=== PATIENT | female | born 1975 | race Caucasian/White ===

== ENCOUNTER 2023-12-31 21:50 | Emergency (ER) | payer OTHER ==
[~2023-12-31] VITALS: Ht 157.5 cm; Wt 54.4 kg
[2023-12-31 22:29] VITALS: TEMP 98.4
[2024-01-01 00:34] VITALS: BP 125/78; O2SAT 100
== END 2024-01-01 00:34 | disposition home or self-care (01) ==
LOC: ER 21:57
DX: T18.2XXA Foreign body in stomach, initial encounter (principal); M54.2 Cervicalgia; W44.8XXA Other foreign body entering into or through a natural orifice, initial encounter; Y93.89 Activity, other specified; Y92.89 Other specified places as the place of occurrence of the external cause; Y99.8 Other external cause status
CPT/HCPCS: 70490-TC; 74018